=== PATIENT | male | born 1990 | race Caucasian/White ===

== ENCOUNTER 2023-07-10 20:21 | Emergency (ER) | payer BC, SELFPAY ==
[2023-07-10 20:23] VITALS: BP 139/82
[2023-07-10 21:28] VITALS: BMI 36.5
[2023-07-10] MEDS: NSS 1000 IV (21:28)
[2023-07-10 21:34] LABS: % Basophils 0.2 % (0-2); % Immature Granulocytes 0.6 % (0-0.5); % Lymphocytes 2.9 % (20.5-51.1); % Monocytes 1.5 % (1.7-9.3); % Neutrophils 94.8 % (42.2-75.2); Absolute Basophils 0.1 10^3/uL (0-0.2); Absolute Immature Granulocytes 0.1 10^3/uL (0-0.05); Absolute Lymphocytes 0.7 10^3/uL (1.2-3.4); Absolute Monocytes 0.3 10^3/uL (0.1-0.6); Absolute Neutrophils 21.5 10^3/uL (1.4-6.5); Hematocrit 43.5 % (39.0-52.0); Hemoglobin 15.7 g/dL (13.0-18.0); Mean Corp Hgb Conc. 36.1 g/dL (33.0-37.0); Mean Corpuscular Hgb 30.7 pg (27.0-31.0); Mean Corpuscular Volume 85.1 fL (80.0-94.0); Mean Platelet Volume 9.1 fL (7.4-10.4); Nucleated Red Blood Cells % 0 % (-); Platelet Count 220 10^3/uL (130-400); Red Blood Cell Count 5.11 10^6/uL (4.70-6.10); Red Cell Dist. Width 12.5 % (11.5-14.5); White Blood Cell Count 22.7 10^3/uL (4.8-10.8)
[2023-07-10 21:51] LABS: ALT (SGPT) 60 U/L (0-50); AST (SGOT) 32 U/L (17-59); Albumin 4.6 g/dl (3.5-5.0); Alkaline Phosphatase 91 U/L (38-126); Blood Urea Nitrogen 15 mg/dl (9-20); Calcium 10.2 mg/dl (8.4-10.2); Carbon Dioxide 18 mmol/L (22-30); Chloride 104 mmol/L (98-107); Estimated Creatinine Clearance > 125 ml/min; Glucose 145 mg/dl (70-99); Sodium 133 mmol/L (135-145); Total Bilirubin 0.9 mg/dl (0.2-1.3); Total Protein 7.3 g/dl (6.3-8.2); eGFR > 60.00
[2023-07-10] MEDS: TORADOL 30 MG IV (22:01)
[2023-07-10 22:31] LABS: Lactic Acid 1.5 mmol/L (0.7-2.0)
[2023-07-10 23:05] VITALS: BP 130/79
[2023-07-10 23:07] LABS: Urine Albumin Negative (Neg - Trace); Urine Bilirubin Negative (Negative); Urine Character Clear (Clear); Urine Color Yellow; Urine Glucose Negative (Negative); Urine Ketone 1+ (Negative); Urine Leukocyte 1+ (Negative); Urine Nitrite Negative (Negative); Urine Occult Blood Negative (Negative); Urine Urobilinogen Negative (Neg - 1+)
--- NOTE | 2023-07-10 23:07 | ED.GENMED ---
History of Present Illness
<Geri Moon NP - Last Filed: 07/10/23 23:11>
General
Chief Complaint: Fever
Source: patient and family
Exam Limitations: none
Time Seen by Provider: 07/10/23 21:09
Nursing documentation reviewed up to this point in time: agreed with
Travel History
Have you had any contact with someone who has COVID-19?: No
Do you have any symptoms of coronavirus? Fever > 100 degrees, chills, cough, shortness of breath, sore throat, loss of taste or smell, muscle aches, or headache?: Yes
Symptoms:: +strep
History of Present Illness
History of Present Illness:
Patient to ED with complaint of fever, sorethroat, low back pain. Symptoms started yesterday. He was seen by PCP today and diagnosed withstrep. Placed on amoxicillin and medrol dose pack. He has had 1 dose of each. Mother felt he seemed confused
tonight. Brought to ED for eval. He is alert and oriented. Complains of low back pain more than sore throat. No prior history of same.
Past History
<Geri Moon SCALE OPERATOR - Last Filed: 07/10/23 23:11>
Past History
ED Past Medical History: Psychiatric
ED Past Surgical History: None
Social History
Personal: Single
Review of Systems
<Geri Moon SCALE OPERATOR - Last Filed: 07/10/23 23:11>
Review of Systems
Allergies reviewed?: Yes
All Other Systems: ROS reviewed and negative except as documented in HPI and ROS
Constitutional: Reports fever and fatigue
EENT: Reports sore throat
Respiratory: Reports no symptoms
Cardiac: Reports no symptoms
ABD/GI: Reports no symptoms
: Reports no symptoms
Musculoskeletal: Reports back pain (low back pain)
Skin: Reports no symptoms
Neurological: Reports no symptoms
Psychiatric: Reports no symptoms
Phy Exam
<Geri Moon NP - Last Filed: 07/10/23 23:11>
General Physical Exam
General Presentation: well appearing and mild distress
General age: appears stated age
General Skin: warm and dry
General Habitus: normal
General Mental: alert
ENT Exam
ENT Exam: EOMI, TM's normal, neck supple, normocephalic, pharyngeal erythema, swallowing well and other (No evidence of peritonsilar abscess. Uvula midline. )
Cardiovascular Exam
Cardiovascular Exam: regular rate/rhythm and no edema
Pulmonary Exam
Pulmonary Exam: lungs clear and no respiratory distress
Gastrointestinal Exam
Gastrointestinal Exam: normal bowel sounds, non tender, soft and no organomegaly
Neurological Exam
Neurological Exam: alert, oriented x3, CN II-XII intact, no motor deficits, no sensory deficits and speech normal
Musculoskeletal Exam
Musculoskeletal Exam: full ROM and neuro vasc intact
Skin Exam
Skin Exam: normal color, warm/dry and no rash
Psychiatric Exam
Psychiatric Exam: normal mood/affect
Course
<Geri Moon SCALE OPERATOR - Last Filed: 07/10/23 23:11>
Orders/Labs/Results
Orders:
Orders
07/10/23 21:16
0.9% Sodium Chloride 1000 ml [Nss] 1,000 ml IV BOLUS
07/10/23 21:23
Complete Blood Count/With Diff Urgent
Comprehensive Metabolic Panel Urgent
07/10/23 21:52
Ketorolac [Toradol] 30 mg IV NOW STA
07/10/23 22:05
Lactic Acid Urgent
Blood Culture Q30M
ROHIT Source: Blood/Venous
Specimen Description:
Blood Culture Q30M
ROHIT Source: Blood/Venous
Specimen Description:
07/10/23 22:57
Urine Microscopic Reflex Cult Urgent
Urine Reflex Culture from UA [Urinalysis Reflex To Culture] Urgent
Date Specimen was Collected: 07/10/23
Time Specimen was Collected: 22:56
Urine Culture Urgent
ROHIT Source: U
Specimen Description:
Date Specimen was Collected: 07/10/23
Time Specimen was Collected: 22:56
07/10/23 23:20
Dexamethasone Sod Phosphate [Decadron] 10 mg IV NOW STA
Piperacillin/Tazo 3.375 Gram [Zosyn] 3.375 gram in 50 ml IV NOW
Abnormal Lab Results
07/10/23 07/10/23
21:23 22:57
WBC 22.7 H 10^3/uL
(4.8-10.8)
Abs Immat Gran (auto) 0.1 H 10^3/uL
(0-0.05)
Absolute Neuts (auto) 21.5 H 10^3/uL
(1.4-6.5)
Absolute Lymphs (auto) 0.7 L 10^3/uL
(1.2-3.4)
Immature Gran % 0.6 H %
(0-0.5)
Neutrophils % 94.8 H %
(42.2-75.2)
Lymphocytes % 2.9 L %
(20.5-51.1)
Monocytes % 1.5 L %
(1.7-9.3)
Sodium 133 L mmol/L
(135-145)
Carbon Dioxide 18 L mmol/L
(22-30)
Glucose 145 H mg/dl
(70-99)
ALT 60 H U/L
(0-50)
Urine Ketones 1+ A
(Negative)
Leukocyte Esterase Rfl 1+ A
(Negative)
07/10/23 21:23
04/03/24 21:23
Vital Signs
Initial and Last Documented VS:
Initial Vital Signs
Temp Pulse Resp BP Pulse Ox
98.0 F 130 18 139/82 99
07/10/23 20:23 07/10/23 20:23 07/10/23 20:23 07/10/23 20:23 07/10/23 20:23
Last Documented Vital Signs
Temp Pulse Resp BP Pulse Ox
99.4 F 100 20 130/79 99
07/10/23 23:05 07/10/23 23:05 07/10/23 23:05 07/10/23 23:05 07/10/23 23:05
<Corey Kennedy DO - Last Filed: 07/10/23 23:51>
Orders/Labs/Results
Orders:
Orders
07/10/23 21:16
0.9% Sodium Chloride 1000 ml [Nss] 1,000 ml IV BOLUS
07/10/23 21:23
Complete Blood Count/With Diff Urgent
Comprehensive Metabolic Panel Urgent
07/10/23 21:52
Ketorolac [Toradol] 30 mg IV NOW STA
07/10/23 22:05
Lactic Acid Urgent
Blood Culture Q30M
ROHIT Source: Blood/Venous
Specimen Description:
Blood Culture Q30M
ROHIT Source: Blood/Venous
Specimen Description:
07/10/23 22:57
Urine Microscopic Reflex Cult Urgent
Urine Reflex Culture from UA [Urinalysis Reflex To Culture] Urgent
Date Specimen was Collected: 07/10/23
Time Specimen was Collected: 22:56
Urine Culture Urgent
ROHIT Source: U
Specimen Description:
Date Specimen was Collected: 07/10/23
Time Specimen was Collected: 22:56
07/10/23 23:20
Dexamethasone Sod Phosphate [Decadron] 10 mg IV NOW STA
Piperacillin/Tazo 3.375 Gram [Zosyn] 3.375 gram in 50 ml IV NOW
Abnormal Lab Results
07/10/23 07/10/23
21:23 22:57
WBC 22.7 H 10^3/uL
(4.8-10.8)
Abs Immat Gran (auto) 0.1 H 10^3/uL
(0-0.05)
Absolute Neuts (auto) 21.5 H 10^3/uL
(1.4-6.5)
Absolute Lymphs (auto) 0.7 L 10^3/uL
(1.2-3.4)
Immature Gran % 0.6 H %
(0-0.5)
Neutrophils % 94.8 H %
(42.2-75.2)
Lymphocytes % 2.9 L %
(20.5-51.1)
Monocytes % 1.5 L %
(1.7-9.3)
Sodium 133 L mmol/L
(135-145)
Carbon Dioxide 18 L mmol/L
(22-30)
Glucose 145 H mg/dl
(70-99)
ALT 60 H U/L
(0-50)
Urine Ketones 1+ A
(Negative)
Leukocyte Esterase Rfl 1+ A
(Negative)
07/10/23 21:23
07/10/23 21:23
Vital Signs
Initial and Last Documented VS:
Initial Vital Signs
Temp Pulse Resp BP Pulse Ox
98.0 F 130 18 139/82 99
07/10/23 20:23 07/10/23 20:23 07/10/23 20:23 07/10/23 20:23 07/10/23 20:23
Last Documented Vital Signs
Temp Pulse Resp BP Pulse Ox
99.4 F 100 20 130/79 99
07/10/23 23:05 07/10/23 23:05 07/10/23 23:05 07/10/23 23:05 07/10/23 23:05
<Corey Kennedy DO - Last Filed: 07/10/23 23:51>
*Critical Care Note
Total Time (30-74mins, 75-104mins- exclusive of procedures): Not Applicable
ED Attending Note
<Geri Moon NP - Last Filed: 07/10/23 23:11>
-
Portions of this chart may have been created with voice recognition software.� Occasional wrong word or��sound alike� substitutions may have occurred due to the inherent limitations of voice recognition software.
<Corey Kennedy DO - Last Filed: 07/10/23 23:51>
ED Attending Note
Patient seen and examined by attending physician: Yes
I performed the substantive portion of visit, reviewed & personally made and approve the management plan that is documented in note by myself or LALY.: Yes
ED Attending Note:
Seen with SCALE OPERATOR examined independently 32-year-old male, sore throat for a day seen at an outside clinic rapid strep was positive per the mother started on antibiotics given a Medrol Dosepak some body aches back pain fever sore throat looks to be
hydrating well, feels better after Toradol white count is up while he does have documented strep infection did receive steroids will continue IV fluids give a dose of steroids IV IV antibiotics PCP follow-up ER for worsening symptoms
Discharge Plan
Departure
Patient Disposition: Home (Routine Discharge)
Date of Disposition: 07/10/23
Time of Disposition: 23:39
Patient with high blood pressure during this ER visit?: No
Condition: Good
Covid-19: Not Applicable
Discharge Problem:
Acute streptococcal pharyngitis
Instructions: Fever, Adult ED, Strep Throat ED
Prescriptions:
No Action
dextroamphetamine-amphetamine [Adderall] 30 mg Tablet
30 mg PO BID
Patient Comments:
07/10/2023: last filled 06/25/23, 60 tabs for 30 days from [facility]
amoxicillin 500 mg Capsule
500 mg PO BID
acetaminophen 325 mg Tablet
650 mg PO Q4H PRN (Reason: mild pain/fever)
methylprednisolone [Medrol ([place])] 4 mg Tablets,Dose Pack
4 mg PO PER PKG DIR
Referrals:
Osbaldo Lovett I., DO [Family Provider] - Tomorrow
Interventions
Interventions:
*General Assessment Last Done: 07/10/23 20:23
ED- Fall Risk Assessment Last Done: 07/10/23 22:22
*ED COVID-19 Vaccine History Last Done: 07/10/23 20:23
ED- Neurological Assessment Last Done: 07/10/23 22:22
ED-Skin Assessment Last Done: 07/10/23 22:22
Discharge Date and Time
Print Language: CAMEROONIAN
[2023-07-10] MEDS: DECADRON 10 MG IV (23:24)
[2023-07-10] MEDS: ZOSYN 50 IV (23:24)
[2023-07-11 00:22] LABS: Urine Bacteria Few (Negative); Urine Urothelial Cell 21-25 /LPF (FEW)
== END 2023-07-10 23:57 | disposition home or self-care (01) ==
LOC: EMR 20:21
PROVIDERS: Nurse Practitioner; EMERGENCY PHYSICIAN Emergency Medicine; FAMILY PHYSICIAN Internal Medicine
DX: J02.0 Streptococcal pharyngitis (principal); M54.50 Low back pain, unspecified; K21.9 Gastro-esophageal reflux disease without esophagitis; F90.9 Attention-deficit hyperactivity disorder, unspecified type; F41.9 Anxiety disorder, unspecified
CPT/HCPCS: 99284; 96365; 96375 ×2; 96361; 80053; 81003; 81015; 83605; 85025; 87040; 87086